=== PATIENT | female | born 1955 | race Caucasian/White ===

== ENCOUNTER 2017-09-09 09:42 | Day surgery (SDC) | payer OTHER ==
[~2017-09-09 09:42] MED LIST: LIDOCAINE 2% (SDV) 5 ML INJ; SUGAMMADEX SODIUM 200 MG/2 ML VIAL IV
[2017-09-09] MEDS ORDERED: SOD CHLORIDE 0.9% 1,000 ML IV (13:30)
[2017-09-09] MEDS ORDERED: CEFAZOLIN 2 GM/50 ML (PMX) 50 ML IVPB (13:30)
[2017-09-09] MEDS ORDERED: MIDAZOLAM 1 MG/ML 2 ML INJ (13:37)
[2017-09-09] MEDS ORDERED: FENTAnyl 50 MCG/ML VIAL ×2 (13:37→14:37)
[2017-09-09] MEDS ORDERED: PROPOFOL 20 ML (13:37)
[2017-09-09] MEDS ORDERED: ROCURONIUM 50 MG INJ (13:37)
[2017-09-09] MEDS ORDERED: DEXAMETHASONE 4 MG/ML 1 ML INJ ×2 (13:40→14:07)
[2017-09-09] MEDS ORDERED: ROPIVACAINE 0.2% 20 ML VIAL (13:40)
[2017-09-09] MEDS ORDERED: CEFAZOLIN 1 GM INJ (14:04)
[2017-09-09] MEDS ORDERED: ONDANSETRON 4 MG INJ (14:07)
[2017-09-09] MEDS ORDERED: FAMOTIDINE 20 MG INJ (14:08)
[2017-09-09] MEDS: BUPIVACAINE 0.25% (MPF) 30 ML INJ (14:30)
[2017-09-09] MEDS ORDERED: traMADol 50 MG TAB PO (14:30)
[2017-09-09] MEDS ORDERED: LABETALOL HCL 20MG INJ IV (15:00)
[2017-09-09] MEDS ORDERED: MEPERIDINE 25 MG INJ IV (15:00)
[2017-09-09] MEDS ORDERED: DIPHENHYDRAMINE 50 MG INJ IV (15:00)
[2017-09-09] MEDS ORDERED: HYDROmorphONE (0.2 MG/ML) 10ML SYG IV (15:13)
[2017-09-09] MEDS: ONDANSETRON 4 MG INJ IV (15:31)
[2017-09-09] MEDS: HYDROmorphONE (0.2 MG/ML) 10ML SYG IV (15:32)
== END 2017-09-09 16:52 | disposition home or self-care (01) ==
LOC: SDS 09:42
DX: K81.1 Chronic cholecystitis (principal)
CPT/HCPCS: 47562; 88304